=== PATIENT | male | born 1980 | race African-American/Black ===

== ENCOUNTER 2017-06-08 01:17 | Emergency (ER) | payer BC, OTHER ==
[~2017-06-08] VITALS: Ht 177.8 cm; Wt 95.3 kg
[2017-06-08 01:34] LABS: ABSOLUTE NEUTROPHILS 2.6 thou/uL (1.4-8.2); BASOPHILS 0.9 % (0.0-2.0); EOSINOPHILS 1.4 % (0.0-3.0); HEMATOCRIT 47.1 % (42.0-52.0); HEMOGLOBIN 15.6 gm/dL (14.0-18.0); LYMPHOCYTES 46.7 % (24.0-44.0); MCH 28.5 pg (26.0-34.0); MCHC 33.2 g/dL (28.0-37.0); MCV 85.8 fL (80.0-100.0); MONOCYTES 11.2 % (1.0-8.0); PLATELET COUNT 344 thou/uL (150-400); POLYS 39.8 % (36.0-66.0); RBC 5.49 mil/uL (4.50-6.00); RDW 14.2 % (10.5-14.5); WBC 6.5 thou/uL (4.0-11.0)
[2017-06-08 01:43] LABS: ANION GAP 13 mmol/L (7-16); BUN 13 mg/dL (7-18); CALCIUM 8.8 mg/dL (8.5-10.1); CHLORIDE 101 mmol/L (98-107); CO2 23 mmol/L (21-32); CREATININE 1.8 mg/dL (0.7-1.3); GLUCOSE 124 mg/dL (74-106); POTASSIUM 3.7 mmol/L (3.5-5.1); SODIUM 137 mmol/L (136-145)
[2017-06-08 01:49] LABS: SALICYLATE 4.6 mg/dL (2.8-20.0); SGOT 29 U/L (15-37); SGPT 28 U/L (30-65); TOTAL BILIRUBIN 0.2 mg/dL (<0.1-1.0)
[2017-06-08 01:55] LABS: PROTIME 9.7 Seconds (9.3-11.4)
[2017-06-08 02:05] LABS: URINE BILIRUBIN NEGATIVE (Negative); URINE BLOOD NEGATIVE (Negative); URINE CLARITY CLEAR; URINE COLOR YELLOW; URINE GLUCOSE-RANDOM* NEGATIVE (Negative); URINE KETONES NEGATIVE (Negative); URINE LEUKOCYTES 1+ (Negative); URINE NITRITE NEGATIVE (Negative); URINE PROTEIN (DIPSTICK) NEGATIVE (Negative); URINE UROBILINOGEN 0.2 E.U./dl (0.2-1.0)
[2017-06-08 02:15] LABS: BACTERIA None Seen /HPF (None Seen); CRYSTALS None Seen /LPF (None Seen); HYALINE CASTS 0-3 Few /LPF (None Seen); MUCUS 0-3 Light strn/LPF (None Seen); SQUAMOUS 0-3 Few /LPF (0-3); URINE RBC None Seen /HPF (0-2); URINE WBC 6-15 Few /HPF (0-5)
[2017-06-08 02:37] LABS: AMP/METHAMP Negative (Negative); BARBITURATES Negative (Negative); BENZODIAZEPINES Negative (Negative); COCAINE POSITIVE (Negative); METHADONE Negative (Negative); OPIATES Negative (Negative); PCP Negative (Negative)
[2017-06-08 02:40] VITALS: BP 107/51
== END 2017-06-08 02:10 ==
LOC: ER 01:17
PROVIDERS: Emergency Medicine
DX: S31.040A Puncture wound with foreign body of lower back and pelvis without penetration into retroperitoneum, initial encounter (principal); F10.921 Alcohol use, unspecified with intoxication delirium; W34.00XA Accidental discharge from unspecified firearms or gun, initial encounter; Y93.89 Activity, other specified; Y92.89 Other specified places as the place of occurrence of the external cause; Y99.8 Other external cause status